=== PATIENT | male | born 1945 | race Caucasian/White ===

== ENCOUNTER 2018-05-29 09:12 | Emergency (ER) | payer OTHER, BC ==
[~2018-05-29] VITALS: Ht 182.9 cm; Wt 98.4 kg
[2018-05-29] MEDS ORDERED: BENICAR5 MG (09:45)
[2018-05-29] MEDS ORDERED: JARDIANCE25 MG (09:45)
[2018-05-29] MEDS ORDERED: VICTOZA 3-0.6 MG/0.1 SUBCUTANEO (09:45)
[2018-05-29] MEDS ORDERED: GLUMETZA500 MG (09:46)
[2018-05-29] MEDS ORDERED: CHILDREN'S ASPI81 MG (09:46)
[2018-05-29] MEDS ORDERED: ACCU-CHEK AVIV1 EAC2 (09:46)
== END 2018-05-29 12:21 | disposition home or self-care (01) ==
LOC: ER 09:12
DX: M54.2 Cervicalgia (principal); R51 Headache